=== PATIENT | male | born 1950 | race Caucasian/White ===

== ENCOUNTER 2017-06-27 06:47 | Day surgery (SDC) | payer MEDICARE, MEDICAID, SELFPAY ==
[2017-06-27 09:13] LABS: BLEEDING TIME 2.5 MINUTES (1.5-7.0)
[2017-06-27 09:15] LABS: BASO % 0.3 % (0-6); EOS % 5.3 % (0-6); GRAN % 59.9 % (47-80); HEMATOCRIT 40.8 % (42.0-52.0); HEMOGLOBIN 14.2 gm/dl (14.0-18.0); LYMPH % 24.2 % (16-45); MEAN CELL VOLUME 93.6 fl (81-97); MEAN CORPUSCULAR HGB CONC 34.8 g/dl (32-36); MEAN PLATELET VOLUME 10.2 fl (7.4-10.4); MONO % 10.3 % (0-9); PLATELET COUNT 235 K/uL (130-400); RED BLOOD COUNT 4.36 M/uL (4.40-5.70); RED CELL DISTRIBUTION WIDTH 13.6 % (11.5-14.5); WHITE BLOOD COUNT W/O DIFF 7.2 K/uL (4.2-12.2)
[2017-06-27 09:18] LABS: MEAN CORPUSCULAR HEMOGLOBIN 32.5 pg (27-33)
[2017-06-27 09:27] LABS: INR 0.98; PARTIAL THROMBOPLASTIN TIME 29.3 SECONDS (24.5-39.1); PROTHROMBIN TIME (PATIENT) 10.6 SECONDS (9.5-12.1)
[2017-06-27 09:36] LABS: ALB/GLOB RATIO 1.6 (1.1-1.8); ALBUMIN 3.9 g/dL (4.0-5.0); ALKALINE PHOSPHATASE 58 U/L (40-129); ALT/SGPT 7 U/L (<41); AST/SGOT 12 U/L (10.0-50.0); BLOOD UREA NITROGEN 16 mg/dL (8-23); CREATININE 0.7 mg/dL (0.7-1.2); EST GLOMERULAR FILTRATION RATE > 60 mL/min; GLUCOSE,RANDOM 88 mg/dL (74-109); TOTAL PROTEIN 6.4 g/dL (6.6-8.7)
[2017-06-27] MEDS ORDERED: BUPIVACAINE 0.5% (5MG/ML) PF 30ML VIAL IVP ONE (09:43)
[2017-06-27] MEDS ORDERED: BUPIVACAINE 0.5% W/EPI MPF 30 ML VIAL IVP ONE (09:43)
[2017-06-27] MEDS ORDERED: DEXAMETHASONE PRESERVATIVE FREE 10MG/ML VIAL IV ONE (09:43)
[2017-06-27] MEDS ORDERED: LIDOCAINE 1% W/EPI 1:200,000 MPF 30ML SQ ONE (11:00)
[2017-06-27] MEDS ORDERED: *PACU ONLY* KETAMINE HCL 10 MG/ML (20ML) VIAL IV ONE (16:04)
[2017-06-27] MEDS ORDERED: MIDAZOLAM HCL 2MG/2ML VIAL IV ONE (16:04)
[2017-06-27] MEDS ORDERED: ALFENTANIL HCL 500 MCG/1ML, 2ML AMP IV ONE (16:04)
[2017-06-27] MEDS ORDERED: PROPOFOL 10 MG/ML VIAL IV ONE (16:04)
--- NOTE | 2017-06-28 07:39 | Operative Note - Ferro ---
DATE OF SURGERY: 06/27/2017. PREOPERATIVE DIAGNOSIS: CERVICAL SPONDYLOSIS WITHOUT MYELOPATHY, ICD-10 CODE M47.812. POSTOPERATIVE DIAGNOSIS: CERVICAL SPONDYLOSIS WITHOUT MYELOPATHY, ICD-10 CODE M47.812. OPERATION: Fluoroscopically guided infiltration of bilateral cervical facets at C6-7, C7-T1, and T1-T2. SURGEON: Michael Zimmer D.O. INDICATIONS: This patient presents with neck pain. Examination shows diffuse tenderness in the cervical spine. Range of motion causes pain in the neck with extension. Under imaging, the above levels were identified. Diagnostics confirm endplate spurring, osteophytic formation, and diffuse disc abnormality. ANESTHESIA: Local sedation. ANESTHESIA PROVIDER: Anne Norton CRNA PROCEDURE: Intravenous lines, vital sign monitoring, and IV sedation. Prepped and draped with sterile technique. Under imaging, the cervical facet levels at C6-7, C7-T1, and T1-T2 were identified and marked bilaterally. With a 25-gauge needle into the facets, 1.0 cc of 0.75 percent Marcaine and dexamethasone was injected at each of the sites bilaterally. All areas were cleaned. Topical antibiotic and sterile dressings were applied. Will monitor and evaluate. MICHAEL ZIMMER D.O. Date & Time JOB NUMBER: [id number] MTDD
== END 2017-06-27 09:10 | disposition home or self-care (01) ==
LOC: SUR 06:47
PROVIDERS: ATTEND Pain Medicine Interventional Pain Medicine
DX: M47.812 Spondylosis without myelopathy or radiculopathy, cervical region (principal)
CPT/HCPCS: 85025; 85730; 85610; 80053; 85002; 93005; 93010; 64490; 64491; 64492; 01935; J1100

== ENCOUNTER 2017-07-25 06:49 | Day surgery (SDC) | payer MEDICARE, MEDICAID ==
[2017-07-25] MEDS ORDERED: FENTANYL PF 100MCG/2ML VIAL IV ONE (06:50)
[2017-07-25] MEDS ORDERED: PROPOFOL 10 MG/ML VIAL IV ONE (06:50)
[2017-07-25] MEDS ORDERED: BUPIVACAINE 0.5% (5MG/ML) PF 30ML VIAL IVP ONE (06:50)
[2017-07-25] MEDS ORDERED: BUPIVACAINE 0.75% W/EPI MPF 30ML VIAL IVP ONE (06:50)
[2017-07-25] MEDS ORDERED: LIDOCAINE 2% MDV (20MG/ML) 20ML VIAL IV ONE (06:50)
[2017-07-25] MEDS ORDERED: DEXAMETHASONE PRESERVATIVE FREE 10MG/ML VIAL IV ONE (06:50)
[2017-07-25] MEDS ORDERED: MIDAZOLAM HCL 2MG/2ML VIAL IV ONE (06:50)
[2017-07-25] MEDS ORDERED: LIDOCAINE 1% W/EPI 1:200,000 MPF 30ML SQ ONE (06:50)
--- NOTE | 2017-07-26 04:52 | Operative Note ---
DATE: 07/25/2017. PREOPERATIVE DIAGNOSES: 1. DEGENERATIVE ARTHRITIS OF THE LEFT HIP. 2. GREATER TROCHANTERIC BURSITIS, LEFT HIP. PROCEDURES: 1. Fluoroscopically guided intra-articular injection of the left hip. 2. Fluoroscopically guided left hip bursa injection. ANESTHESIA: Local sedation. ANESTHESIA PROVIDER: Hilton Vieyra CRNA. INDICATIONS: The patient presents with pain which is in the left hip and bursa. Diagnostics do show mild arthritic change. DESCRIPTION OF PROCEDURE: Intravenous line, vital sign monitoring, and intravenous sedation. Prepped and draped with sterile technique with the patient in modified Watts position, left side up. The skin was infiltrated and then a 20-gauge needle was inserted intra-articular using a posterolateral approach into the hip joint, and 5.0 mL of 0.5% Marcaine with dexamethasone was injected. The greater trochanter was marked and the skin was infiltrated. Using a lateral image a 22-gauge needle was inserted into the bursa with 5.0 mL of the same solution was injected. The areas were cleaned and topical antibiotic and sterile dressing were applied. Will monitor and evaluate. BRIE RICH D.O. Date & Time Job Number: [id number] cc: Haylee Hogue
== END 2017-07-25 08:44 | disposition home or self-care (01) ==
LOC: SUR 06:49
PROVIDERS: ATTEND Pain Medicine Interventional Pain Medicine
DX: M16.12 Unilateral primary osteoarthritis, left hip (principal); M70.62 Trochanteric bursitis, left hip
CPT/HCPCS: 20610 ×2; 01200; J1100; J3010; J3490

== ENCOUNTER 2017-08-01 09:17 | Day surgery (SDC) | payer MEDICARE, MEDICAID ==
--- NOTE | 2017-08-01 07:21 | History and Physical Report ---
DATE: 08/01/2017. CHIEF COMPLAINT AND HISTORY OF CHIEF COMPLAINT: This is a patient with a history of intractable cervical radiculitis. He had a spinal cord stimulator trial conducted on 07/09/2017. Due to the failure of all therapies and the success of the cervical stimulator trial, he presents today for implantation of a permanent system. PAST MEDICAL HISTORY: Asthmatic bronchitis, cardiac disease. PAST SURGICAL HISTORY: Knee surgery, shoulder surgery, foot surgery, lumbar spinal cord stimulator. EMPLOYMENT STATUS: Off work. MEDICATIONS ON ADMISSION: To be provided. ALLERGIES: Aspirin, Celebrex. SOCIAL HISTORY: Smoking, social alcohol, caffeine. FAMILY HISTORY: Noncontributory. REVIEW OF SYSTEMS: The patient seems appropriate and in no acute distress. The remainder of the systems review shows glasses, breathing difficulties. PHYSICAL EXAMINATION: General: Height and weight were not provided. Vital Signs: Blood pressure 140/80. Heart rate 88. Respirations 20. Musculoskeletal: Current examination shows diffuse tenderness in the cervical spine. Range of motion does seem to produce pain into the neck and shoulders with extension and flexion. There is a pain pattern extending somewhat more left than right into the upper extremity, hand, and fingers; although this is by the patient characterized as bilateral. Sensory krause are intact. Neurologic: Cranial nerves are intact. IMPRESSION: INTRACTABLE CERVICAL RADICULITIS, ICD-10 CODE M54.13. PLAN: Due to the failure of all therapies and the success of the cervical stimulator trial, he presents today for implantation of a permanent system. All of the potential risks, side effects, and complications have been carefully reviewed including nerve root injury, spinal cord injury, dural puncture, and spinal headache. The burn table operator's information by way of booklet and CD ROM have been presented and reviewed. All questions were answered. The procedure will be considered outpatient, although an overnight stay will be evaluated. BRIE RICH D.O. Date & Time JOB NUMBER: [id number] cc: Haylee Hogue
[~2017-08-01 09:17] MED LIST: ACETAMINOPHEN 1,000 MG/100 ML BTL IV ONE; ACETAMINOPHEN 325 MG TAB PO PRN; AL HYDROX/MAG HYDROX 30ML UD PO PRN; CEFAZOLIN 2 Gram 2 GM/50 ML BAG IVPB ONE; DIPHENHYDRAMINE HCL 25 MG CAPSULE PO PRN; DIPHENHYDRAMINE HCL IV 50 MG/ML VIAL IVP PRN; FAMOTIDINE 20MG TABLET PO ONE; HYDROCODONE/APAP 7.5/325MG TABLET PO PRN; HYDROMORPHONE HCL 1 MG/ML CPJ IM PRN; HYDROMORPHONE HCL 2 MG/ML VIAL IM PRN; MECLIZINE 25 MG TABLET PO ONE; METOCLOPRAMIDE 10 MG TABLET PO ONE; METOCLOPRAMIDE 10 MG TABLET PO PRN; METOCLOPRAMIDE HCL 10 MG/2 ML VIAL IVP PRN; OXYCODONE/APAP 10MG-325MG TABLET PO PRN; SENNOSIDES/DOCUSATE SODIUM UD CAPSULE PO PRN; TEMAZEPAM 15 MG CAPSULE PO PRN
[2017-08-01] MEDS ORDERED: BUPIVACAINE 0.75% W/EPI MPF 30ML VIAL IVP ONE (09:18)
[2017-08-01] MEDS ORDERED: PROPOFOL 10 MG/ML VIAL IV ONE (09:18)
[2017-08-01] MEDS ORDERED: LIDOCAINE 1% W/EPI 1:200,000 MPF 30ML SQ ONE (09:18)
[2017-08-01] MEDS ORDERED: FENTANYL PF 100MCG/2ML VIAL IV ONE (09:18)
[2017-08-01] MEDS ORDERED: MIDAZOLAM HCL 2MG/2ML VIAL IV ONE (09:18)
[2017-08-01] MEDS ORDERED: CEFAZOLIN 1G VIAL IM ONE (09:18)
[2017-08-01] MEDS ORDERED: HYDROMORPHONE HCL 2 MG/ML VIAL IV ONE (09:18)
[2017-08-01] MEDS ORDERED: LIDOCAINE 2% MDV (20MG/ML) 20ML VIAL IV ONE (09:18)
[2017-08-01] MEDS ORDERED: 0.9 % SODIUM CHLORIDE 10ML SYR IVP SCH (10:00)
[2017-08-01] MEDS ORDERED: RINGERS SOLUTION,LACTATED 1,000 ML IV PRN (12:53)
--- NOTE | 2017-08-01 16:42 | Operative Note - Ferro ---
DATE OF SURGERY: 08/01/17 PREOPERATIVE DIAGNOSIS: INTRACTABLE CERVICAL RADICULITIS, ICD-10 CODE = M54.13. OPERATION: 1. FLUOROSCOPICALLY-GUIDED EPIDURAL ACCESS LEFT OF MIDLINE, T3-4, PLACEMENT OF SPINAL CORD STIMULATOR LEAD 1, A [employer] IN[employer]INION 16 WITH 16 ELECTRODES POSITIONED LEFT C2. 2. FLUOROSCOPICALLY-GUIDED EPIDURAL ACCESS LEFT AT T4-5, PLACEMENT OF SPINAL CORD STIMULATOR LEAD 2, A [employer] 16 WITH 16 ELECTRODES POSITIONED RIGHT, C2. 3. COMPLEX PROGRAMMING LEAD 1 OVER 20 MINUTES FOLLOWED BY COMPLEX PROGRAMMING OF LEAD 2 OVER 20 MINUTES. 4. INCISION, SUBCUTANEOUS DISSECTION, AND ANCHORING OF LEAD 1 AND LEAD 2 TO SUPRASPINOUS FASCIA USING A [employer] LOCKING ANCHOR. 5. INCISION, SUBCUTANEOUS DISSECTION, AND CREATION OF A SUBCUTANEOUS POUCH AT LEFT POSTERIOR GLUTEAL MARGIN FOR PLACEMENT OF GENERATOR IDENTIFIED [employer] PROGRAMMABLE RECHARGEABLE. 6. TUNNELING BETWEEN POUCHES, PLACEMENT OF EXTERNAL PORTION OF LEAD 1 AND LEAD 2 INTO GENERATOR POUCH, EACH LEAD INTERFACED WITH A SEPARATE EXTENSION, EACH EXTENSION INTERFACED TO THE GENERATOR. 7. CLOSURE OF INCISIONS, VICRYL FOR FASCIA AND A RUNNING SUBCUTICULAR VICRYL FOR SKIN. DERMABOND CLOSURE. 8. COMPLEX RECOVERY ROOM PROGRAMMING INTERNAL GENERATOR HOME USE TWO STIMULATORS 20 MINUTES. SURGEON: BRIE RICH D.O. ANESTHESIA: LOCAL SEDATION. ANESTHESIA PROVIDER: MICHELLE JARA CRNA. INDICATION: This patient presents with a history of an intractable cervical radiculitis. Due to the failure of all therapy a spinal cord stimulator trial was conducted with 75 to 85% pain control. Due to the failure of all therapies and the success of the trial, the patient presents today for implantation of a permanent system. PROCEDURE: Intravenous line, vital sign monitoring, IV sedation, prepped and draped in sterile technique, patient position prone. Sterile prep, sterile technique and imaging. The epidural interspace from the left at T3-4 and T4-5 were marked, infiltrated, and then two separate standard epidural needles with [id number] into the space. At 3-4, spinal cord stimulator lead 1, a [employer] Infinion 16 with 16 electrodes positioned left of midline C2. With the epidural access then performed at T4-5 left with a [id number] technique, spinal cord stimulator lead 2, also a [employer] Infinion 16 with 16 electrodes positioned right of the midline at C2. Complex programming of lead 1 over 20 minutes followed by complex programming of lead 2 over 20 minutes resulting in patterns of stimulation across the neck and into the shoulders and arms; patient indicating we are in all of the areas of the pain. He was given the options to implant, continue to program or remove; he opted to implant. The skin below both needles infiltrated, incision made, and subcutaneous dissection was conducted to form a pouch of suitable size for the generator at the left posterior gluteal margin. A midline incision pouch had been formed circumferentially around the two inserted leads and a pouch now formed at the left posterior gluteal margin for the generator. A tunneling tool was then used to carry the two leads into the generator pouch and each lead with its bifurcated extension was interfaced to a separate extension. Each extension was then interfaced to the generator. Antibiotic irrigation and Bovie for hemostasis. The midline incision and the generator incision were then closed Vicryl for fascia and a running subcuticular Vicryl for skin. Dermabond closure. The generator had been affixed to the posterior fascia with nonabsorbable suture. After dressings and Dermabond was placed, he was transported to the Recovery Room stable showing no side-effects from the procedure or the sedation. When fully awake and alert, complex programming was performed in the Recovery Room re-establishing stimulation and pain control to all of the appropriate areas. He was instructed on the use of the system, provided information, error messaging, and then prepared for discharge. DISCHARGE INSTRUCTIONS IN THE MORNIN. The sites will remain clean and dry although the Dermabond will allow showering in 24 hours. No scrubbing of the site. 2. Standard medications resumed including Levaquin, the antibiotic, 500 mg once a day for 14 days. 3. The office will be contacting the patient at home and set up an evaluation in 5-7 days to evaluate the sites. Until then, his activity levels should stay low. All other instructions provided, numbers to contact, problems given. He was then prepared for discharge. cc: Dr. Vela JOB NUMBER: [id number] [facility]
[2017-08-01] MEDS ORDERED: CEFAZOLIN 2 Gram 2 GM/50 ML BAG IVPB SCH (18:30)
--- NOTE | 2017-08-02 08:23 | RADIOLOGY REPORT ---
EXAM: CERVICOTHORACIC SPINE, SINGLE VIEW HISTORY: POSTOP. TECHNIQUE: A single frontal view of the cervical and thoracic spine were obtained. Comparison: 11/17/15. FINDINGS: There are two stimulating wires projecting over the C2 level. Partial visualization of two stimulating wires projecting over the mid thoracic spine. Correlate with intraoperative findings. IMPRESSION: SINGLE AP IMAGE OF THE CERVICAL/THORACIC SPINE ABOVE. JOB NUMBER: [id number] MTDD
== END 2017-08-01 15:29 | disposition home or self-care (01) ==
LOC: SUR 09:17 → MEDSURG 12:50 → SUR 15:29
PROVIDERS: ATTEND Pain Medicine Interventional Pain Medicine
DX: M54.13 Radiculopathy, cervicothoracic region (principal); J44.9 Chronic obstructive pulmonary disease, unspecified; Z72.0 Tobacco use
CPT/HCPCS: 63685; 63650 ×2; 01936; 95972; 72020; J3010; J1170; J0690; J3490; C1820; C1883

== ENCOUNTER 2017-08-22 13:49 | Emergency (ER) | payer MEDICARE, MEDICAID ==
--- NOTE | 2017-08-22 14:09 | Emergency Department Record ---
History of Present Illness - General Chief Complaint: Hypotension Stated Complaint: LOW BLOOD PRESSURE Time Seen by Provider: 08/22/17 13:59 Source: Patient, RN notes reviewed Mode of Arrival: Ambulatory - History of Present Illness Initial Comments: light headed in physical therapy and BP was low and he was sent to [facility] care to see his Dr. and sent to ED and BP is better now. He ate before physical therapy. Sunday he had physical therapy and he was dizzy than he his vision went lyons and he laid down and felt better. Patient was getting physical therapy and it was painful. He had a stimulator placed [address] Zimmer ( this is his second simulator) He also takes pain meds. He now feels back to baseline.PMH COPD and smokes cigs and marijuana for his pain. Primary Dr is family [facility]. Patient took two percocet 10 mg this am and he uses 6 percocet per day MD Complaint: Dizziness Onset/Timin -: Minutes(s) Timing: Sudden onset Description: Lightheadedness History of Same: Yes History of Trauma: No Severity: Mild Improves With: Nothing Worsens With: Nothing Associated Symptoms: Denies other symptoms - Related Data Allergies Allergy/AdvReac Type Severity Reaction Status Date / Time celecoxib [From Celebrex] Allergy Severe SWELLING Verified 11/17/15 14:25 OF THE TONGUE aspirin Allergy Intermediate HIVES Verified 11/17/15 14:25 bupropion HCl Allergy Intermediate NIGHTMARES Verified 11/17/15 14:25 [From Wellbutrin] pregabalin [From Lyrica] AdvReac Intermediate ALTERED Verified 11/17/15 14:25 MENTAL STATUS Travel Screening - Travel/Exposure Within Last 30 Days Have you traveled within the last 30 days?: No Review of Systems Reviewed: No additional complaints except as noted below Constitutional: Reports: As per HPI. Denies: Chills, Fever, Malaise, Night sweats, Weakness, Weight change Eyes: Reports: As per HPI. Denies: Eye discharge, Eye pain, Photophobia, Vision change ENT: Reports: As per HPI. Denies: Congestion, Dental pain, Ear pain, Epistaxis , Hearing loss, Throat pain Respiratory: Reports: As per HPI. Denies: Cough, Dyspnea, Hemoptysis, Stridor, Wheezes Cardiovascular: Reports: As per HPI. Denies: Arrhythmia, Chest pain, Dyspnea on exertion, Edema, Murmurs, Orthopnea, Palpitations, Paroxysmal nocturnal dyspnea, Rheumatic Fever, Syncope Endocrine: Reports: As per HPI. Denies: Fatigue, Heat or cold intolerance, Polydipsia, Polyuria Gastrointestinal: Reports: As per HPI. Denies: Abdominal pain, Constipation, Diarrhea, Hematemesis, Hematochezia, Melena, Nausea, Vomiting Genitourinary: Reports: As per HPI. Denies: Dysuria, Frequency, Hematuria, Incontinence, Retention, Testicular pain, Testicular mass, Urgency Musculoskeletal: Reports: As per HPI. Denies: Arthralgia, Back pain, Gout, Joint swelling, Myalgia, Neck pain Skin: Reports: As per HPI. Denies: Bruising, Change in color, Change in hair/ nails, Lesions, Pruritus, Rash Neurological: Reports: As per HPI. Denies: Abnormal gait, Confusion, Headache, Numbness, Paresthesias, Seizure, Tingling, Tremors, Vertigo, Weakness Psychiatric: Reports: As per HPI. Denies: Anxiety, Auditory hallucinations, Depression, Homicidal thoughts, Suicidal thoughts, Visual hallucinations Hematological/Lymphatic: Reports: As per HPI. Denies: Anemia, Blood Clots, Easy bleeding, Easy bruising, Swollen glands Past Medical History - SOCIAL HISTORY Smoking Status: Current every day smoker Alcohol Use: Occasional Drug Use Detail:: Marijuana - RESPIRATORY Hx Respiratory Disorders: Yes Hx Asthma: Yes Hx Bronchitis: Yes Hx COPD: Yes (good control) Comment:: pt still uses inhalers-has good control - CARDIOVASCULAR Hx Cardio Disorders: Yes Hx Cardiac Cath: Yes ("negative results") Comment:: cardiac cath jun 2013; negative - NEURO Hx Neuro Disorders: Yes Hx Neuropathy: Yes (left hand goes numb) Hx Parkinson's Disease: No (no Parkinsons dx) Comment:: seeing neurologist in January possible parkinsons disease hand tremors - GI Hx GI Disorders: Yes Hx Nausea/Vomiting: No (no longer a problem) Hx Wt Loss/Wt Gain: (loss 26 lbs since August) Comment:: no longer any more wt loss - Hx Genitourinary Disorders: No Hx Kidney Stones: Yes Hx UTI: No (hx) - ENDOCRINE Hx Endocrine Disorders: No - MUSCULOSKELETAL Hx Musculoskeletal Disorders: Yes Hx Arthritis: Yes (whole body) Hx Back Injury: Yes (back/left shoulder injury) Comment:: has scoliosis & has had sciatica left hip - PSYCH Hx Psych Problems: No - HEMATOLOGY/ONCOLOGY Hx Hematology/Oncology Disorders: Yes Hx Bruising: Yes (easy to bruise) Family Medical History Any Significant Family History?: Yes Hx Cancer: Father Hx Heart Disease: Mother Physical Exam - General General Appearance: Alert, Oriented x3, Cooperative, No acute distress - Head Head exam: Normal inspection - Eye Eye exam: Normal appearance, PERRL Pupils: Normal accommodation - ENT ENT exam: Normal exam, Mucous membranes moist, Normal external ear exam, Normal orophraynx, TM's normal bilaterally Ear exam: Normal external inspection. negative: External canal tenderness Nasal Exam: Normal inspection. negative: Discharge, Sinus tenderness Mouth exam: Normal external inspection, Tongue normal Teeth exam: Normal inspection. negative: Dental caries Throat exam: Normal inspection. negative: Tonsillar erythema, Tonsillar exudate - Neck Neck exam: Normal inspection, Full ROM. negative: Tenderness - Respiratory Respiratory exam: Normal lung sounds bilaterally. negative: Respiratory distress - Cardiovascular Cardiovascular Exam: Regular rate, Normal rhythm, Normal heart sounds - GI/Abdominal GI/Abdominal exam: Soft, Normal bowel sounds. negative: Tenderness - Rectal Rectal exam: Deferred - exam: Deferred - Extremities Extremities exam: Normal inspection, Full ROM, Normal capillary refill. negative: Tenderness - Back Back exam: Reports: Normal inspection, Full ROM. Denies: Muscle spasm, Rash noted, Tenderness - Neurological Neurological exam: Alert, Normal gait, Oriented X3, Reflexes normal - Psychiatric Psychiatric exam: Normal affect, Normal mood - Skin Skin exam: Dry, Intact, Normal color, Warm Course Vital Signs 08/22/17 13:51 Temperature 97.9 F Pulse Rate 87 Respiratory 15 Rate Blood Pressure 119/86 Pulse Ox 92 L - Reevaluation(s) Reevaluation #1: patient not dizzy walking to the bathroom and not dizzy with his standing BP 08/22/17 15:33 08/22/17 15:41 Medical Decision Making - Data Complexity MDM Data: Labs Ordered and/or Reviewed, EKG Ordered and/or Reviewed (EKG no acute changes) - Lab Data Result diagrams: 08/22/17 14:10 08/22/17 14:10 Disposition Clinical Impression: Dehydration, Vasovagal reaction Disposition: Home, Self-Care Condition: (1) Good Instructions: Dehydration (ED) Additional Instructions: decrease percocet to one pill at a time drink more fluids Forms: Patient Portal Access Time of Disposition: 16:15 Quality - Quality Measures Quality Measures: N/A - Blood Pressure Screening Does Patient Have Any of the Following: No Blood Pressure Classification: Pre-Hypertensive BP Reading Systolic Measurement: 119 Diastolic Measurement: 86 Screening for High Blood Pressure: < Pre-Hypertensive BP, F/U Documented > [ [id number]] Pre-Hypertensive Follow-up Interventions: Referral to alternative/primary care provider.
[2017-08-22] MEDS ORDERED: 0.9 % SODIUM CHLORIDE 1000ML 1,000 ML IV SCH ×2 (14:15→15:45)
[2017-08-22 14:21] LABS: BASO % 0.2 % (0-6); EOS % 5.8 % (0-6); GRAN % 47.9 % (47-80); HEMOGLOBIN 13.1 gm/dl (14.0-18.0); LYMPH % 36.7 % (16-45); MEAN CELL VOLUME 93.8 fl (81-97); MEAN CORPUSCULAR HEMOGLOBIN 31.4 pg (27-33); MEAN CORPUSCULAR HGB CONC 33.6 g/dl (32-36); MEAN PLATELET VOLUME 9.4 fl (7.4-10.4); MONO % 9.4 % (0-9); PLATELET COUNT 284 K/uL (130-400); RED BLOOD COUNT 4.16 M/uL (4.40-5.70); RED CELL DISTRIBUTION WIDTH 13.6 % (11.5-14.5); WHITE BLOOD COUNT W/O DIFF 8.2 K/uL (4.2-12.2)
[2017-08-22 14:35] LABS: BLOOD UREA NITROGEN 12 mg/dL (8-23); CREATININE 0.8 mg/dL (0.7-1.2); EST GLOMERULAR FILTRATION RATE > 60 mL/min
[2017-08-22 14:38] LABS: GLUCOSE,RANDOM 101 mg/dL (74-109)
[2017-08-22 14:41] LABS: ACETAMINOPHEN 5.5 ug/mL (10.0-30.0)
[2017-08-22 14:42] LABS: SALICYLATE < 0.3 mg/dL (2.8-20)
[2017-08-22 14:43] LABS: CKMB 2.6 ng/mL (<6.73)
[2017-08-22 15:29] LABS: URINE APPEARANCE CLEAR; URINE BILIRUBIN NEGATIVE (NEGATIVE); URINE BLOOD NEGATIVE (NEGATIVE); URINE COLOR YELLOW; URINE GLUCOSE (UA) NEGATIVE (NEGATIVE); URINE KETONE NEGATIVE (NEGATIVE); URINE LEUKOCYTE ESTERASE NEGATIVE (NEGATIVE); URINE NITRITE NEGATIVE (NEGATIVE); URINE PROTEIN NEGATIVE (NEGATIVE); URINE UROBILINOGEN 0.2 E.U./dL (0.20 - 1.00)
== END 2017-08-22 16:37 | disposition home or self-care (01) ==
LOC: ER 13:49
DX: E86.0 Dehydration (principal); R55 Syncope and collapse; R42 Dizziness and giddiness; F17.210 Nicotine dependence, cigarettes, uncomplicated
CPT/HCPCS: 99284 ×2; 85025; 82553; 80048; 81003; 84484; G0480 ×3; 80320; 80329; J7030